=== PATIENT | female | born 2000 | race Caucasian/White ===

== ENCOUNTER 2020-04-13 11:16 | Emergency (ER) | payer OTHER ==
[~2020-04-13] VITALS: Ht 160 cm; Wt 71.7 kg
[2020-04-13 13:01] VITALS: BP 128/60
== END 2020-04-13 13:02 | disposition home or self-care (01) ==
LOC: M.ERS 11:16
DX: S60.410A Abrasion of right index finger, initial encounter (principal); Z91.018 Allergy to other foods; Z91.048 Other nonmedicinal substance allergy status; W22.8XXA Striking against or struck by other objects, initial encounter; Y93.89 Activity, other specified; Y92.89 Other specified places as the place of occurrence of the external cause; Y99.8 Other external cause status